=== PATIENT | male | born 1950 | race Two or more races ===

== ENCOUNTER 2023-08-07 16:54 | Inpatient (IN) | payer OTHER ==
[~2023-08-07] VITALS: Ht 182.9 cm; Wt 65.8 kg
[2023-08-07 19:32] LABS: HEMATOCRIT 48.6 % (39.0-48.0); HEMOGLOBIN 16.1 g/dL (13-16.00); MEAN CELL VOLUME 96.7 fL (80.0-100.00); MEAN CORPUSCULAR HGB CONC 33.1 g/dl (32.0-36.0); PLATELET COUNT 183 K/uL (150-450); RED BLOOD COUNT 5.02 M/uL (4.00-6.00); RED CELL DISTRIBUTION WIDTH 14.8 % (11.5-14.5)
[2023-08-07 20:31] LABS: PARTIAL THROMBOPLASTIN TIME 28.9 SECONDS (22.0-34.0)
[2023-08-07 20:33] LABS: CALCIUM 9.3 mg/dL (8.5-10.1); GFR 73.66; POTASSIUM 3.99 mEq/L (3.5-5.1)
[2023-08-08 05:27] LABS: ABG PH 7.424 (7.35-7.45); ABG PO2 88.9 mmHg (80-100); ABG pCO2 43.6 mmHg (35-45)
[2023-08-08 05:28] LABS: BICARBONATE 27.9 mmol/l (23-25); SaO2 97.1 %
[2023-08-09 06:40] LABS: HEMATOCRIT 44.6 % (39.0-48.0); MEAN CELL VOLUME 96.5 fL (80.0-100.00); MEAN CORPUSCULAR HEMOGLOBIN 32.5 pg (27.00-32.0); MEAN CORPUSCULAR HGB CONC 33.7 g/dl (32.0-36.0); PLATELET COUNT 155 K/uL (150-450); RED BLOOD COUNT 4.62 M/uL (4.00-6.00); RED CELL DISTRIBUTION WIDTH 14.2 % (11.5-14.5)
[2023-08-09 06:56] LABS: PARTIAL THROMBOPLASTIN TIME 31.5 SECONDS (22.0-34.0)
[2023-08-09 07:04] LABS: ALBUMIN 3.8 gm/dL (3.4-5.0); BILIRUBIN TOTAL 0.94 mg/dL (0.3-1.2); BILIRUBIN,CONJUGATED 0.24 mg/dL (0.0-0.2); CALCIUM 8.8 mg/dL (8.5-10.1); CREATININE SERUM 0.87 mg/dL (0.70-1.30); GFR 86.5; POTASSIUM 4.41 mEq/L (3.5-5.1); TOTAL PROTEIN 6.8 gm/dL (6.4-8.2)
[2023-08-09 07:12] LABS: ERYTHROCYTE SEDIMENTATION RATE 14 mm/hr
[2023-08-14] MEDS ORDERED: HYDRALAZINE HCL50 MG (13:42)
[2023-08-14] MEDS ORDERED: ATORVASTATIN CA40 MG (13:42)
[2023-08-14] MEDS ORDERED: NIFEDIPINE ER30 M1 (13:42)
[2023-08-14] MEDS ORDERED: ATORVASTATIN CA20 MG PO (13:42)
[2023-08-14] MEDS ORDERED: LOSARTAN POTAS100 MG (13:42)
[2023-08-14] MEDS ORDERED: DOXAZOSIN MESYLA4 MG PO (13:42)
== END 2023-08-13 14:41 | disposition home or self-care (01) | DRG 304 ==
LOC: ER 16:54 → SURG 08-08 00:38 → SEC-K 08-08 00:38 → MEDI 08-08 01:02 → SURG 08-08 04:32
PROVIDERS: General Practice; ADMIT Internal Medicine; ATTEND Internal Medicine
PROC: BW28ZZZ Computerized Tomography (CT Scan) of Head (ICD-10-PCS; principal; 2023-08-08)
PROC: B24BZZZ Ultrasonography of Heart with Aorta (ICD-10-PCS; 2023-08-08)
PROC: 4A12X4Z Monitoring of Cardiac Electrical Activity, External Approach (ICD-10-PCS; 2023-08-08)
PROC: BW28ZZZ Computerized Tomography (CT Scan) of Head (ICD-10-PCS; 2023-08-11)
DX: I16.9 Hypertensive crisis, unspecified (principal); I63.89 Other cerebral infarction; G93.49 Other encephalopathy; J10.1 Influenza due to other identified influenza virus with other respiratory manifestations; R41.82 Altered mental status, unspecified; I10 Essential (primary) hypertension